=== PATIENT | male | born 1945 | race Caucasian/White ===

== ENCOUNTER 2021-08-09 12:08 | Emergency (ER) | payer MEDICAID, SELFPAY ==
[2021-08-09 12:08] VITALS: BP 199/87; PULSE 64; RESP 20; TEMP 36.8; O2SAT 100
--- NOTE | 2021-08-09 12:11 | ED.GENADULT ---
HPI - General Adult General Chief complaint: Unspecified Stated complaint: anger outburst at [facility]; pt. refused [place] Time Seen by Provider: 08/09/21 12:11 Source: patient Mode of arrival: EMS Limitations: no limitations History of Present Illness HPI narrative: The patient is a 75-year-old male with a history of CVA, hypertension, hyperlipidemia, coronary artery disease, history of IA presenting to the emergency department from [facility] for aggressive behavior. Patient is currently alert and oriented to person, place, to time. He states that he has been living at that facility over the past 4 days, his room has been quite cold and after multiple attempts to ask long term staff to increase the heat in his room and not having any change, patient was very upset this morning and threw a urinal and threw a nightstand at staff. Patient states that he was just upset, and is currently very cooperative. He denies any homicidal or suicidal ideation. He denies any pain of any sort. No recent medication changes. He denies fever, chills, nausea, vomiting, or any urinary symptoms. Patient states that he ate breakfast this morning, and denies any acute complaints. Patient states that he was told by staff at the facility that he cannot stay there anymore. Patient is at the facility because he has difficulty with ambulation, requires a walker to ambulate. Related Data Home Medications Medication Instructions Recorded Confirmed carvedilol 6.25 mg PO BID 08/09/21 clopidogrel [Plavix] 75 mg PO DAILY 08/09/21 diclofenac sodium [Voltaren] 2 g TOPICAL QID 08/09/21 sertraline [Zoloft] 25 mg PO DAILY 08/09/21 Allergies Allergy/AdvReac Type Severity Reaction Status Date / Time No Known Allergies Allergy Verified 08/09/21 12:13 Review of Systems Review of Systems: CONSTITUTIONAL: Denies fever, chills, or sweats. EYES: Denies visual changes, redness, or discharge. ENT: Denies rhinorrhea, congestion, sore throat, or otalgia. CARDIOVASCULAR: Denies chest pain, palpitations, or edema. RESPIRATORY: Denies cough or dyspnea. GASTROINTESTINAL: Denies abdominal pain, nausea, vomiting, or diarrhea. GENITOURINARY: Denies dysuria or hematuria. SKIN: Denies rash or itching. MUSCULOSKELETAL: Denies back pain, joint pain, or myalgia. NEUROLOGIC: Denies headache, numbness, or weakness. [facility] Past Medical History Medical History (Updated 08/09/21 @ 13:15 by Nelida Castelan MD) Myocardial infarction Social History Social History (Updated 08/09/21 @ 12:22 by Nelida Castelan MD) Smoking status: Never smoker Alcohol intake: never Substance use: never Living arrangements: long term Gender identity (if verbalized by the patient): Male Exam Narrative: GENERAL: Awake, alert, conversant HEAD: Normocephalic, atraumatic. EYES: PERRLA and EOMI. ENT: Nares clear, no rhinorrhea or epistaxis. Mucous membranes moist. NECK: Supple. CHEST: No respiratory distress, breathing even and non labored HEART: Regular rate, sinus rhythm, diastolic murmur present, grade III ABDOMEN:Non distended, non tender EXTREMITIES: Normal range of motion. No edema. SKIN: Warm, dry, no rash. NEURO:No focal deficits. Alert and oriented x3 Course Vital Signs Vital signs: Vital Signs Temperature 36.8 C 08/09/21 12:08 Pulse Rate 64 08/09/21 12:08 Respiratory Rate 20 08/09/21 12:08 Blood Pressure 199/87 H 08/09/21 12:08 Pulse Oximetry 100 08/09/21 12:08 Temperature 36.8 C 08/09/21 12:08 Pulse Rate 64 08/09/21 12:08 Respiratory Rate 20 08/09/21 12:08 Blood Pressure 199/87 H 08/09/21 12:08 Pulse Oximetry 100 08/09/21 12:08 Medical Decision Making [facility] Narrative Medical decision making narrative: Patient presented for evaluation following aggressive behavior at the care facility. At the time of assessment, patient is hypertensive but has no acute complaints. He has a history
== END 2021-08-09 14:49 ==
PROVIDERS: Emergency Provider Emergency Medicine; PCP Pediatrics Neonatal-Perinatal Medicine
DX: R45.4 Irritability and anger (principal); E78.5 Hyperlipidemia, unspecified; I10 Essential (primary) hypertension; Z79.02 Long term (current) use of antithrombotics/antiplatelets; I25.2 Old myocardial infarction; Z86.73 Personal history of transient ischemic attack (TIA), and cerebral infarction without residual deficits
CPT/HCPCS: 99281

== ENCOUNTER 2021-11-01 10:05 | Outpatient (CLI) | payer MEDICAID, SELFPAY | END 2021-11-01 10:06 | disposition home or self-care (01) | PROVIDERS: PCP Pediatrics Neonatal-Perinatal Medicine; Visit Provider Pediatrics Neonatal-Perinatal Medicine | DX: E78.5 Hyperlipidemia, unspecified (principal); H61.23 Impacted cerumen, bilateral | CPT/HCPCS: 99199 ==

== ENCOUNTER 2021-12-19 11:25 | Emergency (ER) | payer MEDICAID, SELFPAY ==
[2021-12-19 11:28] VITALS: BP 151/75; PULSE 60; RESP 16; TEMP 37.1; O2SAT 100
[2021-12-19] MEDS: ACETAMINOPHEN 500 MG TABLET PO (11:46)
[2021-12-19] MEDS: ONDANSETRON INJ 4 MG/2 ML VIAL IV PUSH (11:46)
--- NOTE | 2021-12-19 12:18 | ED.GENADULT ---
HPI - General Adult General Chief complaint: Unspecified Stated complaint: blanked out per [facility] Time Seen by Provider: 12/19/21 11:28 History of Present Illness HPI narrative: Pt had one episode of emesis today and now feels fine. Pt denies abdominal pain or chest pain and is no longer nauseated. Pt has no diarrhea. Related Data Home Medications Medication Instructions Recorded Confirmed carvedilol 6.25 mg tablet 6.25 mg PO BID 08/09/21 clopidogrel 75 mg tablet (Plavix) 75 mg PO DAILY 08/09/21 diclofenac sodium 1 % topical gel 2 g topical QID 08/09/21 sertraline 25 mg tablet (Zoloft) 25 mg PO DAILY 08/09/21 Allergies Allergy/AdvReac Type Severity Reaction Status Date / Time No Known Allergies Allergy Verified 12/19/21 13:58 Review of Systems Review of Systems: All systems reviewed & are unremarkable except as noted in HPI and below PMFSH Past Medical History Medical History (Updated 12/19/21 @ 12:22 by Elijah Solis III, DO) Myocardial infarction Social History Social History (Updated 08/09/21 @ 12:22 by Nelida Castelan MD) Smoking status: Never smoker Alcohol intake: never Substance use: never Gender identity (if verbalized by the patient): Male Exam Const: General: cooperative and no acute distress Nutritional Appearance: average body habitus Orientation/consciousness: patient oriented x3 Limitations: no limitations HENMT: Head: normal to inspection Neck: Neck: full ROM Resp: Effort & Inspection: normal respiratory effort Auscultation: clear to auscultation bilaterally Cardio: Palpation: normal PMI Rate: regular rate Rhythm: regular rhythm GI: Inspection: normal to inspection Auscultation: normal bowel sounds Skin: General skin exam: normal color and no rashes or lesions noted Lesions: no lesions Rashes: no rashes Neuro: General: patient oriented x3 Extrem: General: normal to inspection and full ROM Psych: Appearance: grossly normal Mental Status: mental status grossly normal Affect: normal affect Attitude: cooperative Thought process: Normal thought process present Thought content: Yes Normal thought content present Course Vital Signs Vital signs: Vital Signs Temperature 98.7 F 12/19/21 11:28 Pulse Rate 60 12/19/21 11:28 Respiratory Rate 16 12/19/21 11:28 Blood Pressure 151/75 H 12/19/21 11:28 Pulse Oximetry 100 12/19/21 11:28 Oxygen Delivery Room Air 12/19/21 11:28 Temperature 98.7 F 12/19/21 11:28 Pulse Rate 58 L 12/19/21 13:56 Respiratory Rate 16 12/19/21 13:56 Blood Pressure 142/88 H 12/19/21 13:56 Pulse Oximetry 98 12/19/21 13:56 Oxygen Delivery Room Air 12/19/21 11:28 Medical Decision Making Vital Signs Vital Signs: Vital Signs Temperature 98.7 F 12/19/21 11:28 Pulse Rate 60 12/19/21 11:28 Respiratory Rate 16 12/19/21 11:28 Blood Pressure 151/75 H 12/19/21 11:28 Pulse Oximetry 100 12/19/21 11:28 Oxygen Delivery Room Air 12/19/21 11:28 Temperature 98.7 F 12/19/21 11:28 Pulse Rate 58 L 12/19/21 13:56 Respiratory Rate 16 12/19/21 13:56 Blood Pressure 142/88 H 12/19/21 13:56 Pulse Oximetry 98 12/19/21 13:56 Oxygen Delivery Room Air 12/19/21 11:28 Discharge Plan Discharge Clinical Impression: Vomiting Patient Disposition: Home, Self-Care Condition: Stable Instructions: Antibiotic Form, Acute Nausea and Vomiting (ED) Prescriptions: New ondansetron 4 mg tablet,disintegrating 4 mg PO Q8H PRN (Reason: nausea and vomiting) Qty: 10 0RF acetaminophen 500 mg tablet 500 mg PO Q6H PRN (Reason: pain) Qty: 20 0RF No Action carvedilol 6.25 mg Tablet 6.25 mg PO BID clopidogrel [Plavix] 75 mg Tablet 75 mg PO DAILY sertraline [Zoloft] 25 mg Tablet 25 mg PO DAILY diclofenac sodium [Voltaren] 1 % Gel 2 g TOPICAL QID Follow-up/Referrals: Omi Poon MD [Primary Care Provider] -
[2021-12-19 13:56] VITALS: BP 142/88; PULSE 58; RESP 16; O2SAT 98
== END 2021-12-19 14:10 ==
PROVIDERS: Emergency Provider Emergency Medicine; PCP Pediatrics Neonatal-Perinatal Medicine
DX: R11.10 Vomiting, unspecified (principal); I25.2 Old myocardial infarction
CPT/HCPCS: 96374; 99284; A9270; J2405